=== PATIENT | male | born 1980 | race Caucasian/White ===

== ENCOUNTER 2018-05-30 11:17 | Inpatient (IN) | payer MEDICAID, OTHER ==
[~2018-05-30] VITALS: Ht 167.6 cm; Wt 69.4 kg
--- OUTSIDE RECORDS SUMMARY | ~2018-05-30 | XMS | Encounter Summary ---
Demographics + + + | Address | [address] | | | [place] [address] | + + + | Home Phone | | + + + | Preferred Language | Unknown | + + + | Marital Status | Single | + + + | Taoism Affiliation | Unknown | + + + | Race | Unknown | + + + | Ethnic Group | Unknown | + + + Author + + + | Author | [facility] | | | and [place] | + + + | Organization | [facility] | | | and [place] | + + + | Address | Unknown | + + + | Phone | Unavailable | + + + Support + + +---------+ + | Name | Relationship | Address | Phone | + + +---------+ + | Corrections,Eastern | ECON | Unknown | Unavailable | | [place] | | | | + + +---------+ + Care Team Providers + +------+ + | Care Vmware Consultant Name | Role | Phone | + [...] [address] | | | | | [phone] | [place] [address] | | +--------+ + + + + [...]
--- OUTSIDE RECORDS SUMMARY | ~2018-05-30 | XMS | Clinical Summary ---
Demographics + + + | Address | [address] | | | [place] [address] | + + + | Home Phone | | + + + | Preferred Language | Unknown | + + + | Marital Status | Single | + + + | Adventism Affiliation | Unknown | + + + | Race | Unknown | + + + | Ethnic Group | Unknown | + + + Author + + + | Author | [facility] [employer] [employer] [facility] | + + + | Organization | [facility] [employer] [employer] [facility] | + + + | Address | Unknown | + + + | Phone | Unavailable | + + + Support + + + + + | Name | Relationship | Address | Phone | + + + + + | Misael Araiza | ECON | [address] | | | | | [place], | | | | | [place] [address] | | + + + + + Care Team Providers + +------+ + | Care Crew Leader Gluing Name | Role | Phone | + [...] | | | | Activ | | (Tepha) 0.65 % nasal | route as needed [...] + | [facility] | FC-COR | [id number] | | | | | | RECTIO | | | | | | | NAL | | | | | | | HEALTH | | | | | | | | | | | | | | PARTNE | | | | | | | RS | | | | | + +--------+ +------+-------+ + | MEDICAID | MEDICA | [id number] | | | [address] | | | ID | | | | [place] | | | [place] | | | | [address] | + +--------+ +------+-------+ + + +--------+ +--------+ + + | Guarantor Name | Accoun | Relation to | Date | Phone | Billing Address | | | t Type | Patient | of | | | | | | | | | | + +--------+ +--------+ + + | CORRECTIONS,EASTERN | Correc | Other | [birth year] | Home: | [address] | | [place] | onal | | [address] | [phone] | [place] [address] | | | | | | [address] | | | | Facili | | | | | | | ty | | | | | + +--------+ +--------+ + +
--- OUTSIDE RECORDS SUMMARY | ~2018-05-30 | XMS | Clinical Summary ---
Demographics + + + | Address | [address] | | | [place] [address] | + + + | Home Phone | | + + + | Preferred Language | Unknown | + + + | Marital Status | Single | + + + | Restoration Affiliation | Unknown | + + + | Race | Unknown | + + + | Ethnic Group | Unknown | + + + Author + + + | Author | [facility] | | | and [place] | + + + | Organization | [facility] | | | and [place] | + + + | Address | Unknown | + + + | Phone | Unavailable | + + + Support + + +---------+ + | Name | Relationship | Address | Phone | + + +---------+ + | Corrections,Eastern | ECON | Unknown | Unavailable | | [place] | | | | + + +---------+ + Care Team Providers + +------+ + | Care Swimming Pool Installer Name | Role | Phone | + [...]
[~2018-05-30 11:17] MED LIST: BENADRYL25 MG PO; CEPHALEXIN500 MG PO; DETROL2 MG PO; NORCO 5-325 TA1 EACH PO; ULTRAM50 MG PO
[2018-06-06] MEDS ORDERED: TRAZODONE HCL50 MG PO (06:02)
[2018-06-06] MEDS ORDERED: ULTRAM50 MG PO (06:04)
[2018-06-06] MEDS ORDERED: VITAMIN D2000 UNIT PO (06:04)
[2018-06-06] MEDS ORDERED: DETROL LA2 MG PO (06:05)
[2018-06-06] MEDS ORDERED: CELEXA20 MG PO (06:06)
[2018-06-06] MEDS ORDERED: VENTOLIN HFA18 GM INH (06:07)
[2018-06-06] MEDS ORDERED: SUCRALFATE1 GM PO (06:07)
[2018-06-06] MEDS ORDERED: DOCUSATE SODIU250 MG PO (06:08)
[2018-06-06] MEDS ORDERED: FLOVENT HFA12 G1 INH (06:08)
[2018-06-06] MEDS ORDERED: NAPROXEN250 MG PO (06:09)
[2018-06-06] MEDS ORDERED: CROMOLYN SODIUM26 ML NAS (06:10)
[2018-06-06] MEDS ORDERED: CAPZASIN-HP42.5 GM TOP (06:10)
--- NOTE | 2018-06-06 10:25 | NUR ---
06/06/18 1025 Sheets,Tyra 0916 PT ARRIVED TO PACU ASLEEP AND ON RA. PT REACTIVE TO PAINFUL STIMULI AND RESP EVEN AND UNLABROED.
--- NOTE | 2018-06-06 10:58 | NUR ---
PT IN ROOM 114 FROM PACU. RESTING RELAXED POSITION IN BED. ALERT AND ORIENTED. TWO GUARDS WITH PT
--- NOTE | 2018-06-06 12:31 | NUR ---
PT REPORTS HIS PAIN IS A 5/10 AND TRENDING DOWN, HE REPORTS HE IS COMFORTABLE AT THIS TIME.
--- NOTE | 2018-06-06 14:51 | NUR ---
PT UP AMBULATING IN HALLS WITH PHYSICAL THERAPY. TWO GUARDS WITH PATIENT AT ALL TIMES. PT AMBUALTING WELL ONE PERSON ASSIST WITH FWW, NO SHAKLES IN PLACE.
--- NOTE | 2018-06-06 17:29 | NUR ---
PATIENT RESTING IN BED. TWO GUARDS IN ROOM. VITAL SIGNS AND I&O DONE. PATIENT'S DINNER ORDERED. PATIENT COMPLAINS ABOUT PAIN. RN NOTIFIED. CALL LIGHT WITHIN REACH. NO OTHER NEEDS AT THIS TIME
--- NOTE | 2018-06-06 18:36 | NUR ---
PT REQUESTED NEB TREATMENT, [facility] CALLED SHE SAID SHE WOULD BE RIGHT DOWN
--- NOTE | 2018-06-06 21:40 | NUR ---
PATIENT INFORMED ME HE IS HAVING 7/10 HIP PAIN, SCHDELED TYLENOL AND TORADOL GIVEN WITH OTHER PM MEDS. BOWEL TONES ACTIVE AND LUNGS CLEAR. IV FLUSHES WELL. 2 [facility] OFFICERS AT BED SIDE. RITESH LIGHT IN REACH, WATERGLASS FILLED.
--- NOTE | 2018-06-06 22:41 | NUR ---
PATIENT TOOK A WALK WITH FWW 1NURSE SBA AND 2 [facility] OFFICERS AROUND THE NURSES STATION, THEN USED THE BATHROOM AND HAD A SMALL BM. NOW BACK IN BED, WATER REFILLED, WEDGE, SCD'S, TEDS, ANKLE PROTECTORS IN PLACE.
--- NOTE | 2018-06-07 00:35 | NUR ---
PATIENT RESTING QUIETLY IN HIS ROOM WATCHING TV WITH DEAN CUADRA, URINAL EMPTIED ICE WATER GIVEN.CALL LIGHT IN REACH.
--- NOTE | 2018-06-07 02:28 | NUR ---
GETTING REPORT FROM AM SHIFT NNURSE. PATIENT WATCHING TV WITH 2 X [facility] OFFICERS.
--- NOTE | 2018-06-07 02:30 | NUR ---
PATIENT HAS BEEN GIVEN 2AM MEDS, ICE BAGS FILLED, ASSESSMENT DONE, RT HIP PAIN 09/27 PATIENT TO CALL IN 40 MINUTES IF NOT FEELING BETTER. CALL IN REACH. 2 FDC GAURDS PRESENT.
--- NOTE | 2018-06-07 03:42 | NUR ---
PATIENT CALLED AND SAID HIS PAIN IN THE RIGHT HIP REMAINS 7/10, SO 10MG PO OXYCODONE GIVEN AND URINAL DUMPED. CALL LIGHT IN REACH, AND 2 [facility] OFFICERS AT BEDSIDE.
--- NOTE | 2018-06-07 05:05 | NUR ---
PATIENT HAS SLEPT PERIODICALLY THROUGH THE NIGHT, BUT HAS MAINLY WATCHED THE TV WITH THE 2 [facility] OFFICERS ASSIGNED TO HIM. PATIENT RIGHT HIP DRESSING IS CDI AND HE HAS KEPT ICE BAGS ON IT MOST THE NIGHT. PAIN HAS BEEN MODERATELY CONTROLLED WITH MEDS THAT HAVE BEEN ORDERED. PATIENT HAS HAD 10MG OF OXYCODONE X1 AND THE REST HAS BEEN TYLENOL AND TORADOL. PATIENT RESTING QUIETLY, EYES CLOSED AND RESPIRATIONS EVEN WITH CALL LIGHT IN REACH. PAIN HAS NEVER BEEN LOWER THAN A 5/10 ACCORDING TO THE PATIENT.
--- NOTE | 2018-06-07 07:41 | NUR ---
Pt in bed awake at this time. Pt reporting 5/10 right hip pain. Per report pt's lowest pain rating from prior shift was a 5/10. Will review emar for pain medication options. Personal supplies and call light within reach. Two correctional officers in room pt pt. Personal supplies and call light within reach.
--- NOTE | 2018-06-07 09:31 | OR ---
[facility] [address], [place] [address] Signed DATE OF OPERATION: 06/06/2018 SURGEON: Opal Pfeiffer MD PREOPERATIVE DIAGNOSES: End-stage osteoarthritis, right hip. 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 PROCEDURE: Right total hip arthroplasty. ANESTHESIA: Spinal with sedation. SPECIMENS AND COMPLICATIONS: There were no specimens or complications. IMPLANTS: Size of 52, multiple hole shell with three screws. A neutral 36 poly liner, a 36 -2 metal head, and a size 5 Pratt stem, porous ingrowth. WHAT WAS DONE: The patient was taken to the operating room. After anesthesia was induced and the airway secured, the patient was positioned, prepped and draped in the left lateral position. He was then prepped and draped in a routine sterile fashion. Using his previous incision as a guide, but then angling slightly more anterior because he clearly had a previous posterior approach, the skin was divided sharply. Hemostasis was achieved with electrocautery. The deep fascia was incised in line with the skin incision. The self-retaining retractor was placed. We then elevated a portion of the gluteus off the anterior aspect of the remnant of the greater trochanter and allowed it to retract. An anterior capsulectomy was then performed. The hip was dislocated and a femoral neck osteotomy was accomplished right at the base of the neck. We then able to retract the femur posteriorly. We then excised the labrum around the hip. We used a series of sequential hemispherical reamers. We first medialized the cup to the base of the fovea and then enlarged it with a 51 mm reamer. Because of extremely sclerotic bone around the edge, we did use a 52 mm reamer just to make sure the cup would seat. We then placed the 51 mm trial. We were happy with the alignment and position, therefore impacted a 52 mm cup. We used three screws to augment our fixation, which appeared to be quite solid and well medialized at this time. A neutral 36 liner was then placed. The proximal femur was then rotated up into the wound. We used a box chisel, followed Electronically Signed By: OPAL PFEIFFER MD 06/07/18 0931 PATIENT NAME: YUMIKO RIOJAS OPERATIVE REPORT DATE OF : 82 REPORT #: [id number] PHYSICIAN: OPAL PFEIFFER MD PCP: DELORY ALCANTARA MD REPORT IS CONFIDENTIAL AND NOT TO BE RELEASED WITHOUT AUTHORIZATION [facility] [address], [place] [address] Signed by a lateralizer and a canal finder and did sequential reaming up to the size of 5 reamer. We then used sequential broaches and had quite snug fit with a 5 broach. The hip appeared to be quite snug at this point, so we did a trial reduction with a standard neck and a -2 metal head. This gave us a good alignment, good position, and on x-ray, we appeared to have excellent interfaces, good alignment and position. The wound was copiously irrigated. We dislocated the hip, put in the real femoral component, put the real head on the taper. The hip was then relocated. Again, we had good motion, good stability, and appeared to have restored a good portion of his lost leg length. The wound was again copiously irrigated and then closed in a standard fashion. Sterile dressings were applied. He was awakened, taken to the recovery room where he arrived in stable condition. Counts were correct and antibiotic protocols were followed. Opal Pfeiffer MD WFB/MODL /[id number] Copies: ~ Electronically Signed By: OPAL PFEIFFER MD 06/07/18 0931 PATIENT NAME: YUMIKO RIOJAS OPERATIVE REPORT DATE OF : 82 REPORT #: [id number] PHYSICIAN: OPAL PFEIFFER MD PCP: DELROY ALCANTARA MD REPORT IS CONFIDENTIAL AND NOT TO BE RELEASED WITHOUT AUTHORIZATION
--- NOTE | 2018-06-07 12:15 | NUR ---
Pt sitting up in bed, resp even and non labored. Pt reporting increased pain to right hip post ambulation with physical therapy. Oxycodone admin recently per pt request. Two correctional officers in room with pt. Pt has no needs at this time. Lunch at bedside. Personal supplies and call light within reach.
[2018-06-07] MEDS ORDERED: NORCO 10-325 T1 EACH PO (12:52)
[2018-06-07] MEDS ORDERED: ULTRAM50 MG PO (12:53)
[2018-06-07] MEDS ORDERED: ASPIRIN325 MG PO (13:24)
--- NOTE | 2018-06-07 14:32 | NUR ---
PT DC'D TO [facility] WITH 2 GUARDS. I GAVE ENCOURAGEMDNT, AND IT APPEARED HE WANTED TO RESPOND, BUT HELD BACK AND JUST WAVED. GOS BLESS HIM
--- NOTE | 2018-06-08 08:04 | NUR ---
FAXED CHART NOTES INCLUDING FACE SHEET, OP NOTES, PROG NOTE, DC PACKET, AND PT EVAL AND NOTE TO [facility]. RECIEVED FAX CONFIRMATION.
== END 2018-06-07 13:55 | disposition home or self-care (01) | DRG 470 ==
LOC: MS 06-06 05:50 → DSVR 06-06 05:50 → MS 06-06 06:45
PROVIDERS: ADMIT Orthopaedic Surgery
PROC: 0SR902Z Replacement of Right Hip Joint with Metal on Polyethylene Synthetic Substitute, Open Approach (ICD-10-PCS; principal; 2018-06-06 06:45)
DX: Q65.01 Congenital dislocation of right hip, unilateral (principal); M87.851 Other osteonecrosis, right femur; M16.11 Unilateral primary osteoarthritis, right hip; J45.909 Unspecified asthma, uncomplicated; Z79.51 Long term (current) use of inhaled steroids; Z79.899 Other long term (current) drug therapy; Z88.2 Allergy status to sulfonamides; Z88.8 Allergy status to other drugs, medicaments and biological substances
CPT/HCPCS: 01214; 36415; 72170; 73501; 73502; 80048; 85025; 94640; 97110; 97116; 97161; C1713; C1776; J0690; J1885; J2274; J2370; J2405; J2704; J2765; J3010; J7120

== ENCOUNTER 2018-06-11 18:50 | Emergency (ER) | payer OTHER ==
[~2018-06-11] VITALS: Ht 167.6 cm; Wt 69.4 kg
--- OUTSIDE RECORDS SUMMARY | ~2018-06-11 | XMS | Encounter Summary ---
Demographics + + + | Address | [address] | | | [place] [address] | + + + | Home Phone | | + + + | Preferred Language | Unknown | + + + | Marital Status | Single | + + + | Presybeterian Affiliation | Unknown | + + + | Race | Unknown | + + + | Ethnic Group | Unknown | + + + Author + + + | Author | [facility] | | | and [place] | + + + | Organization | [facility] | | | and [place] | + + + | Address | Unknown | + + + | Phone | Unavailable | + + + Support + + +---------+ + | Name | Relationship | Address | Phone | + + +---------+ + | Corrections,Eastern | ECON | Unknown | Unavailable | | [place] | | | | + + +---------+ + Care Team Providers + +------+ + | Care Manager Metrology Name | Role | Phone | + +------+ + PCP | Unavailable | + +------+ + Encounter Details +--------+ + + + + | Date | Type | Department | Care Team | Description | +--------+ + + + + | 03/20/ | Ancillary | [facility] | Provider, | | | 2018 | Orders | [facility] | [facility] [address] | | | | | IMAGING | [address] [place] | | | | | [phone] | [place] [address] | | +--------+ + + + + Social History + +-------+ +--------+------+ | [...] on file | | + + + as of this encounter Plan of Treatment Not on fileas of this encounter Results CT Maxillofacial wo Contrast (03/04/2018 0055) + + + | Narrative | Performed At | + + + | External films for comparison only | [facility] | | | | | No results will be in the chart. | | + + + + +---------+ + + | Performing | Address | City/State/Zipcode | Phone Number | | Organization | | | | + +---------+ + + | [facility] | | | | + +---------+ + + CT Head wo Contrast (03/04/201849) + + + | Narrative | Performed At | + + + | External films for comparison only | [facility] | | | | | No results will be in the chart. | | + + + + +---------+ + + | Performing | Address | City/State/Zipcode | Phone Number | | Organization | | | | + +---------+ + + | [facility] | | | | + +---------+ + + in this encounter Visit Diagnoses Not on filein this encounter"
--- OUTSIDE RECORDS SUMMARY | ~2018-06-11 | XMS | Clinical Summary ---
Demographics + + + | Address | [address] | | | [place] [address] | + + + | Home Phone | | + + + | Preferred Language | Unknown | + + + | Marital Status | Single | + + + | Episcopal Affiliation | Unknown | + + + | Race | Unknown | + + + | Ethnic Group | Unknown | + + + Author + + + | Author | [facility] | | | and [place] | + + + | Organization | [facility] | | | and [place] | + + + | Address | Unknown | + + + | Phone | Unavailable | + + + Support + + +---------+ + | Name | Relationship | Address | Phone | + + +---------+ + | Corrections,Eastern | ECON | Unknown | Unavailable | | [place] | | | | + + +---------+ + Care Team Providers + +------+ + | Care Resident Buyer Name | Role | Phone | + +------+ + PP | Unavailable | + +------+ + Allergies Not on File Current Medications Not on file Active Problems Not on file Encounters +--------+ + + + + | Date | Type | Specialty | Care Team | Description | +--------+ + + + + | 03/20/ | Ancillary | | Provider, | | | 2018 | Orders | | Historical, MD | | +--------+ + + + + from Last 3 Months Social History + +-------+ +--------+------+ | Tobacco [...] on file | | + + + Plan of Treatment + [...] + Results Not on filefrom Last 3 Months"
--- OUTSIDE RECORDS SUMMARY | ~2018-06-11 | XMS | Encounter Summary ---
Demographics + + + | Address | [address] | | | [place] [address] | + + + | Home Phone | | + + + | Preferred Language | Unknown | + + + | Marital Status | Single | + + + | Cheondoism Affiliation | Unknown | + + + | Race | Unknown | + + + | Ethnic Group | Unknown | + + + Author + + + | Author | [facility] | | | and [place] | + + + | Organization | [facility] | | | and [place] | + + + | Address | Unknown | + + + | Phone | Unavailable | + + + Support + + +---------+ + | Name | Relationship | Address | Phone | + + +---------+ + | Corrections,Eastern | ECON | Unknown | Unavailable | | [place] | | | | + + +---------+ + Care Team Providers + +------+ + | Care Us Administrative Law Judge Name | Role | Phone | + [...] [address] | | | | | [phone] | [place] [address] | | +--------+ + + + + [...]
--- OUTSIDE RECORDS SUMMARY | ~2018-06-11 | XMS | Clinical Summary ---
Demographics + + + | Address | [address] | | | [place] [address] | + + + | Home Phone [...] + + | Author | [facility] [facility] | + + + | Organization | [facility] [facility] | + + + | Address | Unknown | + + + | Phone | Unavailable | + + + Support + + + + + | Name | Relationship | Address | Phone | + + + + + | Misael Araiza | ECON | [address] | | | | | [place], | | | | | [place] [address] | | + + + + + Care Team Providers + +------+ + | Care Vacuum Forming Machine Operator Name | Role | Phone [...] | | | | Activ | | ([employer] Software) 0.65 % nasal | route as needed [...] Vaccine: Influenza | | | | | (#1) | 8 | | | + + + + [...] + | [facility] | FC-COR | [id number] | | | | | | RECTIO | | | | | | | NAL | | | | | | | HEALTH | | | | | | | | | | | | | | PARTNE | | | | | | | RS | | | | | + +--------+ +------+-------+ + | MEDICAID | MEDICA | [id number] | | | [address] | | | ID | | | | [place] | | | [place] | | | | [phone] | + +--------+ +------+-------+ + + +--------+ +--------+ + + | Guarantor Name | Accoun | Relation to | Date | Phone | Billing Address | | | t Type | Patient | of | | | | | | | | | | + +--------+ +--------+ + + | CORRECTIONS,EASTERN | Correc | Other | [birth year] | Home: | [address] | | [place] | onal | | [address] | [phone] | [place] [address] | | | | | | [address] | | | | Facili | | | | | | | ty | | | | | + +--------+ +--------+ + +
--- OUTSIDE RECORDS SUMMARY | ~2018-06-11 | XMS | Clinical Summary ---
Demographics + + + | Address | [address] | | | [place] [address] | + + + | Home Phone | | + + + | Preferred Language | Unknown | + + + | Marital Status | Single | + + + | Sabianism Affiliation | Unknown | + + + | Race | Unknown | + + + | Ethnic Group | Unknown | + + + Author + + + | Author | [facility] | | | and [place] | + + + | Organization | [facility] | | | and [place] | + + + | Address | Unknown | + + + | Phone | Unavailable | + + + Support + + +---------+ + | Name | Relationship | Address | Phone | + + +---------+ + | Corrections,Eastern | ECON | Unknown | Unavailable | | [place] | | | | + + +---------+ + Care Team Providers + +------+ + | Care Pricing Manager Name | Role | Phone | + [...]
--- OUTSIDE RECORDS SUMMARY | ~2018-06-11 | XMS | Clinical Summary ---
Demographics + + + | Address | [address] | | | [place] [address] | + + + | Home Phone | | + + + | Preferred Language | Unknown | + + + | Marital Status | Single | + + + | Roman Catholic Affiliation | Unknown | + + + | Race | Unknown | + + + | Ethnic Group | Unknown | + + + Author + + + | Author | [facility] [employer] [facility] | + + + | Organization | [facility] | + + + | Address | Unknown | + + + | Phone | Unavailable | + + + Support + + + + + | Name | Relationship | Address | Phone | + + + + + | Misael Araiza | ECON | [address] | | | | | [place], | | | | | [place] [address] | | + + + + + Care Team Providers + +------+ + | Care Glass Maker Name | Role | Phone | + [...] | | | | Activ | | (MDdatacor) 0.65 % nasal | route as needed [...] + | [facility] | FC-COR | [id number] | | | | | | RECTIO | | | | | | | NAL | | | | | | | HEALTH | | | | | | | | | | | | | | PARTNE | | | | | | | RS | | | | | + +--------+ +------+-------+ + | MEDICAID | MEDICA | [id number] | | | [address] | | | ID | | | | [place] | | | [place] | | | | [phone] | + +--------+ +------+-------+ + + +--------+ +--------+ + + | Guarantor Name | Accoun | Relation to | Date | Phone | Billing Address | | | t Type | Patient | of | | | | | | | | | | + +--------+ +--------+ + + | CORRECTIONS,EASTERN | Correc | Other | [birth year] | Home: | [address] | | [place] | onal | | [phone] | [phone] | [place] [address] | | | | | | [address] | | | | Facili | | | | | | | ty | | | | | + +--------+ +--------+ + +
[~2018-06-11 18:50] MED LIST changes: +ASPIRIN325 MG PO; +CAPZASIN-HP42.5 GM TOP; +CELEXA20 MG PO; +CROMOLYN SODIUM26 ML NAS; +DETROL LA2 MG PO; +DOCUSATE SODIU250 MG PO; +FLOVENT HFA12 G1 INH; +NAPROXEN250 MG PO; +NORCO 10-325 T1 EACH PO; +SUCRALFATE1 GM PO; +TRAZODONE HCL50 MG PO; +VENTOLIN HFA18 GM INH; +VITAMIN D2000 UNIT PO
[2018-06-11] MEDS ORDERED: COLACE100 MG PO (19:19)
== END 2018-06-11 22:10 | disposition home or self-care (01) ==
LOC: ED 18:50
DX: G89.18 Other acute postprocedural pain (principal); M25.551 Pain in right hip; Z96.641 Presence of right artificial hip joint; J45.909 Unspecified asthma, uncomplicated; Z87.891 Personal history of nicotine dependence; Z88.2 Allergy status to sulfonamides; Z88.1 Allergy status to other antibiotic agents; Z79.899 Other long term (current) drug therapy; Z79.82 Long term (current) use of aspirin
CPT/HCPCS: 73502; 76882; 80053; 81001; 83605; 85025; 93971; 96372; 99284-25; J1885

== ENCOUNTER 2018-07-12 18:59 | Emergency (ER) | payer OTHER ==
[~2018-07-12] VITALS: Ht 167.6 cm; Wt 69.4 kg
--- OUTSIDE RECORDS SUMMARY | ~2018-07-12 | XMS | Clinical Summary ---
Demographics + + + | Address | [address] | | | [place] [address] | + + + | Home Phone | | + + + | Preferred Language | Unknown | + + + | Marital Status | Single | + + + | Orthodox Affiliation | Unknown | + + + | Race | Unknown | + + + | Ethnic Group | Unknown | + + + Author + + + | Author | Luis Eduardo [facility] [employer] | + + + | Organization | [facility] [employer] | + + + | Address | Unknown | + + + | Phone | Unavailable | + + + Support + + + + + | Name | Relationship | Address | Phone | + + + + + | Misael Araiza | ECON | [address] | | | | [place], | | | | | [place] [address] | | + + + + + Care Team Providers + +------+ + | Care Seed Trucker Name | Role | Phone | + +------+ + | Doroteo William MD | PP | | + +------+ + Allergies + + + + + + | Active Allergy | Reactions | Severity | Noted | Comments | | | | | Date | | + + + + + + | Doxepin | Hives | High | 10/06/19 | | | | | | 15 | | + + + + + + | Sulfamethoxazole-Tri | Other (See Comments) | Medium | 06/09/19 | Does not remember | | methoprim | | | 17 | | + + + + + + | Sulfa Antibiotics | Other (See Comments) | Medium | 10/06/19 | unknown | | | | | 15 | | + + + + + + Current Medications + + +-------+---------+------+------+-------+ | Prescription | Sig. | Disp. | Refills | Star | End | Statu | | | | | | t | Date | s | | | | | | Date | | | + + +-------+---------+------+------+-------+ | divalproex | Take 1,500 mg by | | | | | Activ | | (DEPAKOTE) 500 MG 24 | mouth daily. | | | | | e | | hr tablet | | | | | | | + + +-------+---------+------+------+-------+ | meloxicam (MOBIC) | Take 7.5 mg by mouth | | | | | Activ | | 7.5 MG tablet | 2 (two) times | | | | | e | | | daily. | | | | | | + + +-------+---------+------+------+-------+ | ranitidine | Take 150 mg by mouth | | | | | Activ | | (ZANTAC) 150 MG | 2 (two) times | | | | | e | | capsule | daily. | | | | | | + + +-------+---------+------+------+-------+ | sodium chloride | 1 spray by Each Nare | | | | | Activ | | (Tall [place] Midstream) 0.65 % nasal | route as needed for | | | | | e | | | Congestion. | | | | | | + + +-------+---------+------+------+-------+ | albuterol | Inhale 2 puffs into | | | | | Activ | | (VENTOLIN HFA) 108 | the lungs 4 (four) | | | | | e | | (90 BASE) MCG/ACT | times daily. | | | | | | | inhaler | | | | | | | + + +-------+---------+------+------+-------+ | fluticasone | Inhale 2 puffs into | | | | | Activ | | (FLOVENT HFA) 110 | the lungs 2 (two) | | | | | e | | MCG/ACT inhaler | times daily. Rinse | | | | | | | | mouth after use | | | | | | + + +-------+---------+------+------+-------+ | capsicum (ZOSTRIX) | Apply topically 3 | | | | | Activ | | 0.075 % topical | (three) times daily | | | | | e | | cream | as needed. | | | | | | + + +-------+---------+------+------+-------+ | melatonin 3 MG | Take 3 mg by mouth | | | | | Activ | | TABS | nightly as needed. | | | | | e | + + +-------+---------+------+------+-------+ | diphenhydrAMINE | Take 50 mg by mouth | | | | | Activ | | (BENADRYL) 50 MG | every 6 (six) hours | | | | | e | | capsule | as needed for | | | | | | | | Itching. | | | | | | + + +-------+---------+------+------+-------+ | citalopram | Take 20 mg by mouth | | | | | Activ | | (CELEXA) 20 MG | every morning. | | | | | e | | tablet | | | | | | | + + +-------+---------+------+------+-------+ | tolterodine | Take 2 mg by mouth 2 | | | | | Activ | | (DETROL) 2 MG tablet | (two) times daily. | | | | | e | + + +-------+---------+------+------+-------+ | cromolyn | 1 spray by Nasal | | | | | Activ | | (NASALCHROM) 5.2 | route 4 (four) times | | | | | e | | MG/ACT nasal spray | daily. | | | | | | + + +-------+---------+------+------+-------+ Active Problems + + + | Problem | Noted Date | + + + | Non-sustained ventricular tachycardia | 06/08/2016 | + + + | Suicide attempt by drug ingestion (HCC) | 10/05/2014 | + + + | Hyperammonemia (HCC) | 10/05/2014 | + + + | Valproic acid toxicity | 10/05/2014 | + + + | Dysthymic disorder | | + + + | Borderline personality disorder (HCC) | | + + + | Unspecified episodic mood disorder | | + + + | History of suicide attempt | | + + + + + | Overview: prior overdose | + + + +---+ | Suicidal ideation | | + +---+ Family History + + +------+ + | Medical History | Relation | Name | Comments | + + +------+ + | Heart disease | Mother | | | + + +------+ + + +------+--------+ + | Relation | Name | Status | Comments | + +------+--------+ + | Mother | | Alive | | + +------+--------+ + | Sister | | Alive | | + +------+--------+ + Social History + +-------+ +--------+------+ | Tobacco Use | Types | Packs/Day | Years | Date | | | | | Used | | + +-------+ +--------+------+ | Former Smoker | | | | | + +-------+ +--------+------+ + + +---------+ + | Alcohol Use | Drinks/We | oz/Week | Comments | | | ek | | | + + +---------+ + | No | 0 | 0.0 | | | | Standard | | | | | drinks or | | | | | | | | | | equivalen | | | | | t | | | + + +---------+ + + + + | Sex Assigned at | Date Recorded | | | | + + + | Not on file | | + + + Last Filed Vital Signs + + + + | Vital Sign | Reading | Time Taken | + + + + | Blood Pressure | 118/76 | 06/08/2016 11:30 AM PDT | + + + + | Pulse | 74 | 06/08/2016 11:30 AM PDT | + + + + | Temperature | 36.7 C (98.1 F) | 10/05/2014 4:00 PM PDT | + + + + | Respiratory Rate | 22 | 10/05/2014 4:00 PM PDT | + + + + | Oxygen Saturation | 97% | 06/08/2016 11:30 AM PDT | + + + + | Inhaled Oxygen | - | - | | Concentration | | | + + + + | Weight | 59.2 kg (130 lb 9.6 | 06/08/2016 11:30 AM PDT | | | oz) | | + + + + | Height | 175.3 cm (5' 9") | 06/08/2016 11:30 AM PDT | + + + + | Body Mass Index | 19.29 | 06/08/2016 11:30 AM PDT | + + + + Plan of Treatment + + + + + | Health Maintenance | Due Date | Last Done | Comments | + + + + + | Vaccine: | | | | | Dtap/Tdap/Td (1 - | 1 | | | | Tdap) | | | | + + + + + | Vaccine: Influenza | | | | | (Season Ended) | 9 | | | + + + + + Results Not on filefrom Last 3 Months Insurance + +--------+ +------+-------+ + | Payer | Benefi | Subscriber | Type | Phone | Address | | | t Plan | ID | | | | | | / | | | | | | | Group | | | | | + +--------+ +------+-------+ + | [employer] | [employer] | [id number] | | | | | | RECTIO | | | | | | | NAL | | | | | | | HEALTH | | | | | | | | | | | | | | [place] | | | | | | | [place] | | | | | + +--------+ +------+-------+ + | MEDICAID | MEDICA | [id number] | | | [address] | | | ID | | | | [place] | | | [place] | | | | [phone] | + +--------+ +------+-------+ + + +--------+ +--------+ + + | Guarantor Name | Accoun | Relation to | Date | Phone | Billing Address | | | t Type | Patient | of | | | | | | | | | | + +--------+ +--------+ + + | CORRECTIONS,EASTERN | Correc | Other | [birth year] | Home: | [address] | | [place] | onal | | [address] | [phone] | [place] [address] | | | | | | [phone] | | | | Facili | | | | | | | ty | | | | | + +--------+ +--------+ + +
--- OUTSIDE RECORDS SUMMARY | ~2018-07-12 | XMS | Clinical Summary ---
Demographics + + + | Address | [address] | | | [place] [address] | + + + | Home Phone | | + + + | Preferred Language | Unknown | + + + | Marital Status | Single | + + + | Christianity Affiliation | Unknown | + + + | Race | Unknown | + + + | Ethnic Group | Unknown | + + + Author + + + | Author | [facility] | | | and [place] | + + + | Organization | [facility] | | | and [place] | + + + | Address | Unknown | + + + | Phone | Unavailable | + + + Support + + +---------+ + | Name | Relationship | Address | Phone | + + +---------+ + | Corrections,Eastern | ECON | Unknown | Unavailable | | [place] | | | | + + +---------+ + Care Team Providers + +------+ + | Care Commissioning Editor Name | Role | Phone | + +------+ + PP | Unavailable | + +------+ + Allergies Not on File Medications Not on file Active Problems Not on file Social History + +-------+ +--------+------+ | Tobacco Use | Types | Packs/Day | Years | Date | | | | | Used | | + +-------+ +--------+------+ | Never Assessed | | | | | + +-------+ +--------+------+ + + + | Sex Assigned at | Date Recorded | | | | + + + | Not on file | | + + + + + + + | Job Start Date | Occupation | Industry | + + + + | Not on file | Not on file | Not on file | + + + + + + + + | Travel History | Travel Start | Travel End | + + + + + + | No recent travel history available. | + + Plan of Treatment + + + + + | Health Maintenance | Due Date | Last Done | Comments | + + + + + | Vaccine: | | | | | Dtap/Tdap/Td (1 - | 1 | | | | Tdap) | | | | + + + + + | Vaccine: Influenza | Completed | 02/07/2018, 01/12/2017, | | | | | 01/20/2016, Additional history | | | | | exists | | + + + + + Results Not on filefrom Last 3 Months Advance Directives Patient has advance care planning documents on file. For more information, please contact:[facility] [place] [address]"
--- OUTSIDE RECORDS SUMMARY | ~2018-07-12 | XMS | Clinical Summary ---
Demographics + + + | Address | [address] | | | [place] [address] | + + + | Home Phone | | + + + | Preferred Language | Unknown | + + + | Marital Status | Single | + + + | Nondenominational Affiliation | Unknown | + + + | Race | Unknown | + + + | Ethnic Group | Unknown | + + + Author + + + | Author | [facility] | | | and [place] | + + + | Organization | [facility] | | | and [place] | + + + | Address | Unknown | + + + | Phone | Unavailable | + + + Support + + +---------+ + | Name | Relationship | Address | Phone | + + +---------+ + | Corrections,Eastern | ECON | Unknown | Unavailable | | [place] | | | | + + +---------+ + Care Team Providers + +------+ + | Care Sweater Designer Name | Role | Phone | + [...] on file. For more information, please contact:[facility] [place] [address]"
--- OUTSIDE RECORDS SUMMARY | ~2018-07-12 | XMS | Clinical Summary ---
Demographics + + + | Address | [address] | | | [place] [address] | + + + | Home Phone | | + + + | Preferred Language | Unknown | + + + | Marital Status | Single | + + + | Gnosticist Affiliation | Unknown | + + + | Race | Unknown | + + + | Ethnic Group | Unknown | + + + Author + + + | Author | Luis Eduardo [facility] | + + + | Organization | [facility] | + + + | Address | Unknown | + + + | Phone | Unavailable | + + + Support + + + + + | Name | Relationship | Address | Phone | + + + + + | Misael Araiza | ECON | [address] | | | | | [place], | | | | | [place] [address] | | + + + + + Care Team Providers + +------+ + | Care Crusher Machine Operator Name | Role | Phone | + [...] | | | | Activ | | ([email or web address]) 0.65 % nasal | route as needed [...] + | [employer] | [employer]-COR | [id number] | | | | | | RECTIO | | | | | | | NAL | | | | | | | HEALTH | | | | | | | | | | | | | | [place] | | | | | | | [place] | | | | | + +--------+ +------+-------+ + | MEDICAID | MEDICA | [id number] | | | [address] | | | ID | | | | [place] | | | [place] | | | | [phone] | + +--------+ +------+-------+ + + +--------+ +--------+ + + | Guarantor Name | Accoun | Relation to | Date | Phone | Billing Address | | | t Type | Patient | of | | | | | | | | | | + +--------+ +--------+ + + | CORRECTIONS,EASTERN | Correc | Other | [birth year] | Home: | [address] | | [place] | onal | | [address] | [phone] | [place] [address] | | | | | | [address] | | | | Facili | | | | | | | ty | | | | | + +--------+ +--------+ + +
[~2018-07-12 18:59] MED LIST changes: +COLACE100 MG PO
== END 2018-07-12 20:17 | disposition home or self-care (01) ==
LOC: ED 18:59
DX: M25.551 Pain in right hip (principal); J45.909 Unspecified asthma, uncomplicated; Z87.891 Personal history of nicotine dependence; Z88.8 Allergy status to other drugs, medicaments and biological substances; Z88.2 Allergy status to sulfonamides; Z79.899 Other long term (current) drug therapy; Z79.82 Long term (current) use of aspirin
CPT/HCPCS: 73700; 99283-25